=== PATIENT | male | born 1990 | race Caucasian/White ===

== ENCOUNTER 2022-05-04 21:29 | Emergency (ER) | payer SELFPAY ==
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
[2022-05-04 21:39] VITALS: BP 149/82; PULSE 97; O2SAT 100; BMI 26.9
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
[2022-05-04 22:00] VITALS: BP 127/76; PULSE 84; RESP 16; TEMP 36.6; O2SAT 98
[2022-05-04] MEDS: Diphth,Pertus(ACell),Tet Adult 0.5 ML SYRINGE IM (22:49)
[2022-05-05] MEDS: Ibuprofen 600 MG TABLET PO (00:44)
[2022-05-05 00:48] VITALS: BP 136/84; PULSE 72; RESP 18; O2SAT 97
== END 2022-05-05 00:48 | disposition home or self-care (01) ==
PROVIDERS: Emergency Provider Student in an Organized Health Care Education/Training Program
DX: S06.0X0A Concussion without loss of consciousness, initial encounter (principal); S13.4XXA Sprain of ligaments of cervical spine, initial encounter; S29.012A Strain of muscle and tendon of back wall of thorax, initial encounter; S70.211A Abrasion, right hip, initial encounter; S80.811A Abrasion, right lower leg, initial encounter; V43.52XA Car driver injured in collision with other type car in traffic accident, initial encounter; W22.11XA Striking against or struck by driver side automobile airbag, initial encounter; Y93.89 Activity, other specified; Y92.414 Local residential or business street as the place of occurrence of the external cause; Y99.9 Unspecified external cause status
CPT/HCPCS: 70450; 72125; 90471; 90715; 99283; 99284

== ENCOUNTER → 2023-07-10 13:04 | Outpatient (BNVA) | payer SELFPAY | PROVIDERS: Visit Provider Physician Assistant Medical | DX: Z02.79 Encounter for issue of other medical certificate (principal) ==

== ENCOUNTER → 2025-07-08 13:26 | Outpatient (BNVA) | payer SELFPAY | PROVIDERS: Visit Provider Physician Assistant | DX: Z02.79 Encounter for issue of other medical certificate (principal) ==